=== PATIENT | male | born 1965 | race African-American/Black ===

== ENCOUNTER 2016-09-30 10:31 | Inpatient (IN) ==
[2016-09-30] MEDS ORDERED: SODIUM CHLORIDE 0.9% 1,000 ML IV STA (10:50)
[2016-09-30 10:51] LABS: Basophils % 0.3 % (0.0-0.8); Eosinophils # 0.1 10*3/uL (0.0-0.87); Eosinophils % 1.2 % (0.00-10.9); Hemoglobin 7.1 GM/DL (14.0-18.0); Immature Granulocytes % 0.6 %; Immature Granulocytes Absolute 0.07 #; Lymphocytes # 4.7 10*3/uL (1.4-4.0); Lymphocytes % 43.1 % (21.2-54.2); Mean Corpuscular HGB Conc 33.8 GM/DL (32-36); Mean Corpuscular Hemoglobin 33 PG (27-34); Mean Corpuscular Volume 97.7 FL (87-102); Mean Platelet Volume 11.1 FL (9.6-12.0); Monocytes # 0.8 10*3/uL (0.11-0.8); Monocytes % 6.9 % (1.7-12.7); NRBC # 0.09 10*3/uL; Neutrophils # 5.2 10*3/uL (1.4-7.4); Neutrophils % 47.9 % (38.7-73.9); Platelet Count 176 T/CUMM (130-400); Red Blood Count 2.15 MC/CUMM (3.8-5.5); Red Cell Distribution Width 13.4 % (9.3-17.3); White Blood Count 10.9 T/CUMM (4-12)
[2016-09-30 10:59] LABS: INR 1.1; PT Patient Result 11.4 SECS
[2016-09-30] MEDS ORDERED: PANTOPRAZOLE 40 MG VIAL IV STA (11:02)
[2016-09-30] MEDS ORDERED: ONDANSETRON 4 MG/2 ML VIAL IV STA (11:02)
[2016-09-30] MEDS ORDERED: PANTOPRAZOLE 40 MG VIAL IV ONE (11:04)
[2016-09-30] MEDS ORDERED: ONDANSETRON 4 MG/2 ML VIAL ONE (11:04)
[2016-09-30] MEDS ORDERED: SODIUM CHLORIDE 0.9% 250 ML IV PRN (11:16)
[2016-09-30 11:23] LABS: Alanine Aminotransferase 39 U/L (16-61); Albumin 3.5 G/DL (3.4-5.0); Alkaline Phosphatase 73 U/L (45-117); Aspartate Amino Transferase 26 U/L (0-37); Bilirubin,Total < 0.39 MG/DL (0.2-1.0); Blood Urea Nitrogen 19 MG/DL (7-18); Calcium 8.5 MG/DL (8.5-10.1); Glucose 131 MG/DL (74-106); Potassium 3.1 MMOL/L (3.5-5.1); Sodium 143 MMOL/L (136-145); Total Protein 6.1 G/DL (6.4-8.3); Troponin I Only < 0.015 NG/ML (0.00-0.045)
--- NOTE | 2016-09-30 11:27 | Emergency Department Note ---
Dev Quintero Mantricia, am scribing for, and in the presence of, Darren Stephen MD 11:11. Hailee Quintero James D, MD, personally performed the services described in this documentation, ascribed by Bhavin Méndez in my presence, and it is both accurate and complete . Arrival - Arrival Chief Complaint: Syncope Stated Complaint: syncope ED Nursing Triage Note: Brought in per EMS from work with c/o syncopal episode this am. Reports was dizzy, then had syncopal episode while sitting in truck. + vomiting--bright red blood. Also c/o black tarry stools-- onset 09/26/16. + diaphoresis. Denies pain. Mode of Arrival: Stretcher Limitations: No Limitations Source: Patient Time Seen by Provider: 09/30/16 10:54 - History of Present Illness HPI Narrative: Pt is a 51 y/o black male arriving to ED by EMS for evaluation of a syncopal episode that occurred today around 1000. He states that he was at work at [employer], sitting in his truck, and he became very hot and diaphoretic and fell out. A coworker found him and called his . He states that he might have been LOC for a few minutes. Pt also reports vomiting bright red blood and melena fro the past 3-4 days but denies any pain anywhere. He confirms no use of OTC medications. Pt reports no other complaints to ED. Onset (ago): hour(s) Allergies/Adverse Reactions: Allergies Allergy/AdvReac Type Severity Reaction Status Date / Time No Known Allergies Allergy Verified 09/30/16 10:37 Home Medications: Home Medications Medication Instructions Recorded Confirmed Type Aspirin EC Tab 81 mg PO QAM 09/30/16 09/30/16 History Atorvastatin [Lipitor] 40 mg PO QAM 09/30/16 09/30/16 History Levocetirizine Dihydrochloride 5 mg PO QAM 09/30/16 09/30/16 History Metoprolol Succinate Xl [Toprol Xl] 25 mg PO QAM 09/30/16 09/30/16 History Nitroglycerin Sl Tab [Nitrostat] 0.4 mg SL Q5M PRN 09/30/16 09/30/16 History amLODIPine [Norvasc] 10 mg PO QAM 09/30/16 09/30/16 History Review of System - Review of System 12 point system: reviewed and no additional remarkable complaints except as stated - Review of System Constitutional: Present: diaphoresis. Absent: chills Eyes: Absent: discharge, pain Head/Ears/Nose/Throat: Absent: earache Respiratory: Absent: cough Cardiovascular: Present: syncope. Absent: chest pain, palpitations Gastrointestinal: Present: nausea, vomiting (bright red blood), diarrhea, melena. Absent: abdominal pain Genitourinary male: Absent: urgency, dysuria Musculoskeletal: Absent: arm pain, back pain, leg pain, neck pain Skin: Absent: rash, lesions Neurological: Absent: headache, weakness Psychiatric: Absent: anxiety, depression Medical,Surgical,& Family Hx - Medical History Cardio: History of: Hypertension, [place] (2013) Endocrine: History of: Dyslipidemia - Social History Smoking Status: Current every day smoker Frequency of Alcohol Use: Occasionally (Patient states that he drinks on holidays. He admits to drinking over Memorial Day weekend about a 6 pack per day.) Type of Drug Use: None Exam Vital Signs: Vital Signs Temperature 97.0 F L 09/30/16 10:31 Pulse Rate 97 H 09/30/16 10:56 Respiratory Rate 18 09/30/16 11:13 Blood Pressure 113/77 09/30/16 10:56 O2 Sat by Pulse Oximetry 100 09/30/16 10:56 - General General appearance: alert, in no apparent distress - Head Head exam: Present: atraumatic, normocephalic, normal inspection - Eye Eye exam: Present: PERRL, EOMI, other (Pale conjunctiva) - ENT ENT exam: Present: normal exam, normal oropharynx, mucous membranes moist, TM's normal bilaterally, normal external ear exam - Neck Neck exam: Present: normal inspection, full ROM, trachea midline. Absent: tenderness - Chest Chest inspection: Present: normal inspection, symmetric chest wall rise. Absent : tenderness - Respiratory Respiratory exam: Present: normal lung sounds bilaterally - Cardiovascular Cardiovascular exam: Present: regular rate, normal rhythm, normal heart sounds - Abdominal Exam Abdominal exam: Present: soft, normal bowel sounds. Absent: distention, tenderness, guarding, rebound - Rectal Exam Rectal exam: Present: normal rectal tone, heme (+) stool, black stool - Extremities Exam Extremities exam: Present: normal inspection, full ROM, normal capillary refill. Absent: tenderness, pedal edema - Back Exam Back exam: Present: normal inspection, full ROM. Absent: tenderness - Neurological Exam Neurological exam: Present: alert, oriented X3, CN II-XII intact, normal gait, reflexes normal - Psychiatric Psychiatric exam: Present: normal affect, normal mood - Skin Skin exam: Present: intact, normal color, diaphoresis Course Course Narrative: Patient was given IV Protonix in the emergency department along with Zofran. Patient was also transfused packed red blood cells while in the emergency department. He will be admitted to the ICU. - Consultations Consultation #1: Discussed with Dr. Salmeron. He will see the patient in consultation. Time: 11:25 Consultation #2: Discussed with hospitalist. Patient will be admitted to their service. Time: 11:25 Results - Labs CBC & BMP: 09/30/16 10:42 09/30/16 10:42 Lab Results: I have reviewed the patients labs - EKG EKG results: interpreted by ERMD - Impressions EKG: Normal sinus rhythm with a rate of 93, nonspecific ST-T wave changes, left axis deviation. - Diagnostic Findings Procedure: Abdominal x-ray: image reviewed by me, Chest x-ray: image reviewed by me Critical Care Time Critical Care Time: Yes Total Critical Care Time: 60 Attestation: Transfusion, Protonix, and Zofran while in the emergency department. Disposition Clinical Impression: Upper GI bleeding, Syncope, Acute blood loss anemia Case discussed with: patient, patient's family Disposition: Still a Patient Condition: Guarded
--- NOTE | 2016-09-30 11:41 | XRay Report ---
History: Syncope Date: 09/30/2016 Study: Chest x-ray PA and lateral Comparison exam: November 12, 2012 chest x-ray The cardiomediastinal silhouette and pulmonary vasculature are unremarkable. The lungs and pleural spaces are clear. The osseous structures are unremarkable. Impression: No acute cardiopulmonary process. Shallow inspiration. No significant interval changes from the previous study PROCEDURE INTERPRETED AT [facility] DEPARTMENT OF RADIOLOGY Final Report Signed by: Dr. Lay Salmeron
--- NOTE | 2016-09-30 11:44 | XRay Report ---
History: Upper GI bleeding Date: 09/30/2016 Study: Flat and erect abdomen Comparison exam: No previous There is no evidence of pneumoperitoneum. The bowel gas pattern is nonobstructive without gross mass lesion. No radiopaque calculi are seen. Osseous structures are unremarkable. Impression: No acute cardiopulmonary process PROCEDURE INTERPRETED AT [facility] DEPARTMENT OF RADIOLOGY Final Report Signed by: Dr. Lay Salmeron
[2016-09-30] MEDS ORDERED: LIDOCAINE 100 MG/5 ML SYRINGE ONE (12:00)
[2016-09-30] MEDS ORDERED: PROPOFOL 200 MG/20 ML VIAL IV ONE (12:00)
[2016-09-30] MEDS ORDERED: PANTOPRAZOLE INJ 200 MG in SODIUM CHLORIDE 0.9% 250 ML IV SCH (12:00)
[2016-09-30] MEDS ORDERED: SODIUM CHLORIDE 0.9% 1,000 ML IV SCH (12:00)
--- NOTE | 2016-09-30 12:05 | Hospitalist History & Physical ---
Assessment and Plan (1) Nicotine addiction Status: Acute Assessment and plan: At the time of admission the patient reports that he smokes 1 pack of cigarettes daily. I spoke with the patient in great detail regarding smoking necessitation and risk factors associated with smoking along with his co- morbidities. The patient acknowledged understanding of the risk factors. He agreed to wear a nicotine patch during the hospital admission. Current Visit: Yes (2) Alcohol addiction Status: Acute Assessment and plan: The patient reports that he is a daily alcohol drinker. He reports that he drinks at least one sixpack of beer a day; however he has not experienced a prolonged period of time in which he has not been able to drink. We will start we will start alcohol withdrawal protocol and monitor. Current Visit: Yes (3) Upper GI bleeding Status: Acute Assessment and plan: We will hold n.p.o., start PPIs, gently hydrate, and consult GI for evaluation. Current Visit: Yes (4) Syncope Status: Acute Assessment and plan: The patient has a known cardiac history. He reports a history of an NE in 2002. He reports medication compliance. However due to his complexity of his co -morbidities we will conduct a full syncope workup. Current Visit: Yes (5) Acute blood loss anemia Status: Acute Assessment and plan: His H&H at the time of admission was noted at 7.0 and 21. I do expect this level to further decline. We will type and screen, obtain serial H/H's, and transfuse as indicated. Current Visit: Yes (6) Hypokalemia Status: Acute Assessment and plan: Potassium was noted at 3.1. We will replace and recheck in a.m. Current Visit: Yes History of Present Illness Chief complaint: Bloody stools and bloody emesis History of present illness: This is a very pleasant 51-year-old male that presented to the ED at [facility] via EMS for evaluation of syncope, bloody stools, and bloody emesis. The patient has a medical history significant for hypertension, myocardial infarction (2013), dyslipidemia, nicotine addiction, and alcohol addiction. The patient reports no significant surgical history. Apparently the patient was at work today, sitting in his truck when he suddenly became hot , diaphoretic, and eventually passed out. The syncopal episode was witnessed by his coworker who proceeded to call his and EMS. He briefly came to and was transported here for further evaluation. Upon interview, the patient reported that he had been experiencing blood in his stool and vomiting blood for the past 3 days prior to presentation. He reported that he had been drinking in excess during the holiday. He denies the use of any [id number] medications or illicit drugs at the time of interview, however reports that he is a daily drinker of at least one six pack of beer. The patient reports that he is a current smoker states that he smokes at least one pack of cigarettes a day. Labs were obtained at the time of presentation which reported anemia with a hemoglobin of 7.1 and hematocrit of 21.0, hypokalemia with a potassium of 3.1, BUN at 19, glucose at 131, and total protein at 6.1. Cardiac enzymes were obtained which reported a troponin at less than 0.015. Abdominal x-ray was performed which was unremarkable for any acute cardiopulmonary process. Chest x -ray was obtained which was essentially benign with no acute cardiopulmonary process noted. After brief discussion with and Dr. Li, the patient will be admitted to the critical care unit under the hospitalist services for further evaluation. We will consult GI and cardiology to assist. Home Medications Medication Instructions Recorded Confirmed Type Aspirin EC Tab 81 mg PO QAM 09/30/16 09/30/16 History Atorvastatin [Lipitor] 40 mg PO QAM 09/30/16 09/30/16 History Levocetirizine Dihydrochloride 5 mg PO QAM 09/30/16 09/30/16 History Metoprolol Succinate Xl [Toprol Xl] 25 mg PO QAM 09/30/16 09/30/16 History Nitroglycerin Sl Tab [Nitrostat] 0.4 mg SL Q5M PRN 09/30/16 09/30/16 History amLODIPine [Norvasc] 10 mg PO QAM 09/30/16 09/30/16 History Allergies Allergy/AdvReac Type Severity Reaction Status Date / Time No Known Allergies Allergy Verified 09/30/16 10:37 Medical,Surgical,& Family Hx - Medical History Cardio: History of: Hypertension, [place] (2013) Endocrine: History of: Dyslipidemia - Social History Smoking Status: Current every day smoker Frequency of Alcohol Use: Occasionally (Patient states that he drinks on holidays. He admits to drinking over weekend about a 6 pack per day.) Type of Drug Use: None 12 point system: reviewed and no additional remarkable complaints except as stated Exam - Constitutional Vitals: Period Temp Pulse Resp BP Sys/Lugo Pulse Ox Last 24 Hr 97.0 F-97.0 F 97-102 18-20 113-113/64-77 99-100 General appearance: normal weight, no acute distress - Head Head exam: Present: normal inspection, normocephalic, atraumatic - Eye Eye exam: Present: EOMI. Absent: conjunctival injection, nystagmus Pupils: Present: RESHMA, normal accommodation - ENT ENT exam: Present: normal exam, normal external ear exam, normal oropharynx - Neck Neck exam: Present: normal inspection. Absent: lymphadenopathy, meningismus, tenderness, thyromegaly - Respiratory Respiratory exam: Present: clear to auscultation bilaterally. Absent: rales, rhonchi, stridor, wheezes - Cardiovascular Cardiovascular exam: Present: regular rate and rhythm. Absent: carotid bruit, diastolic murmur, gallop, JVD, rubs, systolic murmur - GI/Abdominal GI/Abdominal exam: Present: normal bowel sounds, soft - Extremities Exam Extremities exam: Present: normal inspection, normal capillary refill, full ROM. Absent: edema - Back Exam Back exam: Present: normal inspection - Neurological Exam Neurological exam: Present: alert, oriented X3, CN II-XII intact - Psychiatric Psychiatric exam: Present: normal affect, normal mood - Skin Skin exam: Present: normal color, warm, dry Results - Labs CBC & BMP: 09/30/16 10:42 09/30/16 10:42 Lab Results: I have reviewed the past 24 hour labs
[2016-09-30 12:09] LABS: Hematocrit 21.3 VOL% (42.0-52.0)
[2016-09-30] MEDS ORDERED: ONDANSETRON 4 MG/2 ML VIAL IV PRN (12:21)
[2016-09-30] MEDS ORDERED: NICOTINE 21 MG/24 HR PATCH TRANSDERM PRN (12:21)
[2016-09-30] MEDS ORDERED: THIAMINE INJ 100 MG, FOLIC ACID INJ 1 MG, MULTIVITAMIN INJ 10 ML in SODIUM CHLORIDE 0.9... IV SCH (12:30)
[2016-09-30 12:47] LABS: Thyroid Stimulating Hormone 0.993 uIU/ml (0.358-3.74); VLDL CHOLESTEROL 19.6 MG/DL
--- NOTE | 2016-09-30 13:35 | Gastrointestinal Consult Note ---
Assessment and Plan (1) Upper GI bleeding Status: Acute Assessment and plan: The differential diagnosis for this patient is mostly esophageal varices, the patient does take an aspirin each day and it is possible he may have had a localized peptic ulcer, less likely this is a Amy-Cotton tear or Dieulafoy's lesion or AVM. Gastric cancer remains in the differential as does erosive gastritis and esophagitis. We will proceed with upper endoscopy tomorrow morning after starting octreotide drip tonight. Current Visit: Yes (2) Acute posthemorrhagic anemia Status: Acute Assessment and plan: The patient has an acute posthemorrhagic anemia likely secondary to variceal bleeding given his prior history of alcohol intake. We will verify this with upper endoscopy tomorrow in the meantime cover the patient with octreotide 100 mcg bolus followed by 50 mcg/h and a drip and will continue this for 48 hours. If he is verified to have esophageal varices the patient will need to be on a beta-yulissa leaving the hospital. We will continue to transfuse him in the interim once the octreotide is started. The patient will also be placed on Protonix 40 mg IV twice daily. Upper endoscopy is to occur tomorrow morning, after the patient has been resuscitated and stabilized. Risks of the above procedure include but are not limited to: Bleeding, infection, perforation, cardiac and pulmonary compromise. If varices replace the patient will need to be on a full liquid diet for a full week afterwards. Current Visit: Yes (3) Personal history of colonic polyps Status: Acute Assessment and plan: The patient had a hyperplastic polyp noted on his last colonoscopy in November 2015 , he will need a repeat colonoscopy in October 2025 as these polyps carry very little malignant rest. Current Visit: Yes (4) Nausea and vomiting Status: Acute Assessment and plan: I suspect this is likely associated with the melena and digested blood irritating his stomach. This should improve as he clears the blood. We will continue to watch for further hematemesis and the development of hepatic encephalopathy as result of digested blood. Current Visit: Yes (5) Alcohol addiction Status: Acute Assessment and plan: Discussed frankly the patient's need to discontinue drinking entirely at this point. His was appraised of same. He understands the need to stop drinking. Again I reemphasized the fact that he has about a 20% chance of dying with each hematemesis episode if the cause is proven to be esophageal varices. Current Visit: Yes History of Present Illness Chief complaint: Melena, hematemesis, syncope, hematocrit down to 21% acutely History of present illness: Mr. Kelly is a 51 year old male who is a patient of mine who originally with a history of rectal fissure and recently underwent colonoscopy on 11/26/15 with the discovery of moderate size internal hemorrhoids as well as multiple hyperplastic appearing polyps that proved to be, indeed, hyperplastic. He does not require repeat colonoscopy for another 10 years i.e. until October 2025. The patient unfortunately has been drinking since age 13 and is a alcoholic sometimes drinking up to 18 beers in a day. He has been drinking in conjunction with the hol. For the last 4 days or so the patient is been having black stools for the first time in his life--these have been quite sticky in addition to being black and today patient feels nauseous and had some dizziness while at work. He passed out while at work and was assessed by local medical personnel and turned his head and had an episode of coffee-ground emesis and bright red emesis and was noted to the emergency room to have a hematocrit of 21.0 with an INR of 1.1 and a liver function tests are surprisingly normal with an ALT of 39 and AST of 26 and alkaline phosphatase of 73 and a bilirubin of <0.39. The patient has had previous heart attacks in the past including a non-Q-wave [place] back in October 2012. He has underlying hypertension and hyperlipidemia as well as tobacco use. We have discussed his alcoholism, and that he needs to quit drinking at this time. The patient now understands that he is about a 20% chance of dying with each of these episodes if this proves to be a variceal bleed. The patient has had some syncope with this episode, not surprising given his hematocrit drop. He has never had upper endoscopy. There is no family history of colorectal cancer or polyps, he does not typically have diarrhea or constipation or abdominal pain even with this episode. He felt may be a hint of reflux 4 days ago when he started having the dark stools. He is not eating anything unusual and did not have profuse vomiting before the development of his melena. He was last seen in my GI clinic on 10/29/15. 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 Home Medications Medication Instructions Recorded Confirmed Type Aspirin EC Tab 81 mg PO QAM 09/30/16 09/30/16 History Atorvastatin [Lipitor] 40 mg PO QAM 09/30/16 09/30/16 History Levocetirizine Dihydrochloride 5 mg PO QAM 09/30/16 09/30/16 History Metoprolol Succinate Xl [Toprol Xl] 25 mg PO QAM 09/30/16 09/30/16 History Nitroglycerin Sl Tab [Nitrostat] 0.4 mg SL Q5M PRN 09/30/16 09/30/16 History amLODIPine [Norvasc] 10 mg PO QAM 09/30/16 09/30/16 History Allergies Allergy/AdvReac Type Severity Reaction Status Date / Time No Known Allergies Allergy Verified 09/30/16 10:37 Medical,Surgical,& Family Hx - Medical History Cardio: History of: Hypertension, [place] (2013) Endocrine: History of: Dyslipidemia - Surgical History Cardiac Surgeries: Sugical HX of: Cardiac Catheterization (X2 stents) HEENT Surgeries: Surgical HX of: Tonsilectomy & Adenoidectomy - Family History Family History: Reports;: Family Cancer (grandparents), Family Diabetes (sister) , Family Heart Disease (father) - Social History Smoking Status: Current every day smoker Frequency of Alcohol Use: Occasionally (Patient states that he drinks on holidays. He admits to drinking over about a 6 pack per day.) Type of Drug Use: None Review of systems: Constitutional: Denies fever, chills, but positive for recent nausea, and vomiting Eyes: Denies dry eyes, and scleral icterus HENT: Denies headaches Cardiovascular: Denies acute chest pain and claudication Respiratory: Denies shortness of breath, wheezing, and difficulty breathing, denies cough Gastrointestinal: As noted in the HPI Genitourinary: Denies dysuria and hematuria Neurologic: Denies vision loss, and loss of sensation Musculoskeletal: He does have some minimal joint swelling, joint stiffness, and muscular weakness Psychiatric: Denies depression and carol symptoms, positive for alcoholism. Heme-Lymph: Denies easy bruising, lymph node enlargement or tenderness, night sweats, excessive bleeding Allergies-immunologic: Denies pruritus and rhinorrhea Exam - Constitutional Vitals: Period Temp Pulse Resp BP Sys/Lugo Pulse Ox Last 24 Hr 97.0 F-98.0 F 82-102 16-20 113-146/64-78 99-100 Exam: Constitutional: Well-developed, well-nourished, alert, and in no acute distress Head and face: Head: Normocephalic atraumatic Eyes: Conjunctiva without injection, no gross scleral icterus, pupils equal and round bilaterally Ears: Intact to conversation in both ears Nose: External appearance is normal, nares patent Mouth: Oral mucous membranes moist without erythema dentition noted to be without erosion Neck: Normal appearance, no masses or tenderness, trachea midline Thyroid: Gland midline and appropriate size for age Respiratory: Normal respiratory effort, clear to auscultation without wheezes, rhonchi or rales Cardiovascular: Regular rate and rhythm, normal S1, S2, the exam is without rubs, murmurs or gallops. Gastrointestinal: Nontender to palpation, normal active bowel sounds, tone normal without rigidity or guarding, no masses present, no hepatomegaly, no spleen tip felt. Stool is notably black in a patient with significant rectal tone and a large bulbous external hemorrhoid and smaller spongy internal hemorrhoids. Lymphatic: Neck without adenopathy, axilla without lymphadenopathy present Musculoskeletal: Right and left lower extremities without evidence of edema Skin and subcutaneous tissue: No rashes or ulcerations noted, normal skin turgor, digits and nails without clubbing/cyanosis/deformities. Neurologic: The patient is grossly oriented to person place and time, cranial nerves show tongue movements are normal with normal tongue extrusion midline, light touch sensation is intact. Psychiatric: No hallucinations or delusions are present, does not appear depressed Results - Labs CBC & BMP: 09/30/16 12:04 09/30/16 10:42 Quality Measures - VTE Contraindication to Pharmacological VTE Prophylaxis: Active Bleeding
[2016-09-30] MEDS ORDERED: OCTREOTIDE 100 MCG/ML SYRINGE IV ONE (14:00)
[2016-09-30] MEDS ORDERED: LORazepam 2 MG/1 ML VIAL IV PRN (14:07)
[2016-09-30] MEDS ORDERED: OCTREOTIDE 1,250 MCG in SODIUM CHLORIDE 0.9% 247.5 ML IV SCH (14:30)
--- NOTE | 2016-09-30 14:36 | Ultrasound Report ---
History: Syncope Date: 09/30/2016 Study: Carotid duplex ultrasound Comparison exam: No previous Color Doppler, wave form analysis, and grayscale analysis of the cervical carotid arteries was performed. There is mild partially calcified plaque in the right carotid bulb. Waveform analysis shows proper directional flow of the cervical carotid arteries. There is antegrade flow in either vertebral artery. The distal right ICA measures 5.0 mm diameter; the left measures 5.2 mm diameter. Peak systolic velocities are as follows: Right CCA 116 cm/s Right ICA 127 cm/s Right ECA 117 cm/s Right vertebral 55 cm/s Right IC/CC ratio 1.1 Left CCA 116 cm/s Left ICA 113 cm/s Left ECA 104 cm/s Left vertebral 78 cm/s Left IC/CC ratio 1.0 There is 16-49 % diameter reduction narrowing of either internal carotid artery using indirect NASCET criteria. Ultrasound images were captured and archived. Impression: No hemodynamically significant internal carotid artery stenosis PROCEDURE INTERPRETED AT [facility] DEPARTMENT OF RADIOLOGY Final Report Signed by: Dr. Lay Salmeron
[2016-09-30] MEDS ORDERED: POTASSIUM CHLORIDE RIDER 10 MEQ in PREMIX 1 EACH IV PRN (15:08)
--- NOTE | 2016-09-30 18:48 | ECHO Report ---
El Kelly Exam Date: 09/30/2016 14:28 Referring Physician: Technologist: anna OharaS, RVT Age: 51 Ht (in): 73 Wt (lb): 207 Gender: M Exam Location: [facility] Echo Indications: Syncope and collapse, GI bleed, Hypokalemia, Acute blood loss anemia, Nicotine and alcohol addiction BP: 146 / 78 HR: 88 Rhythm: Sinus Technical Quality: IMPRESSIONS Left ventricular ejection fraction is estimated at 55-60 %. Diastolic parameters are most consistent with grade 2 diastolic dysfunction or pseudonormalization. No significant valvular disease MEASUREMENTS (Male / Female) Normal Values 2D ECHO LV Diastolic Diameter PLAX 5.2 cm 4.2 - 5.9 / 3.9 - 5.3 cm LV Systolic Diameter PLAX 3.2 cm LV Fractional Shortening PLAX 38.3 % IVS Diastolic Thickness 1.1 cm 0.6 - 1.0 / 0.6 - 0.9 cm LVPW Diastolic Thickness 1.4 cm 0.6 - 1.0 / 0.6 - 0.9 cm RV Internal Dim ED PLAX 2.3 cm Aortic Root Diameter 3.3 cm LA Systolic Diameter LX 3.5 cm 3.0 - 4.0 / 2.7 - 3.8 cm FINDINGS Left Ventricle Normal left ventricular cavity size. Mild left ventricular hypertrophy. Left ventricular ejection fraction is estimated at 55-60 %. Diastolic parameters are most consistent with grade 2 diastolic dysfunction or pseudonormalization Right Ventricle The right ventricle is normal in size and function. Right Atrium The right atrium is normal in size. Left Atrium The left atrium is normal in size. Mitral Valve Morphologically normal mitral valve without significant stenosis or prolapse. There is no mitral regurgitation. Aortic Valve Morphologically normal aortic valve without significant sclerosis or stenosis. There is no aortic regurgitation. Tricuspid Valve Morphologically normal tricuspid valve without significant stenosis or regurgitation. Pulmonary artery systolic pressure is normal. Pulmonic Valve Morphologically normal pulmonic valve without significant stenosis. There is no pulmonic regurgitation. Pericardium Normal pericardium without effusion. Aorta Normal ascending aorta dimension. Isabel Borja (Electronically Signed) Final Date: 30 Sep 2016 18:47
[2016-09-30] MEDS: POTASSIUM CHLORIDE 20 MEQ/15 ML UDCUP PO SCH (21:32)
[2016-09-30] MEDS: 1: THIAMINE INJ 100 MG, FOLIC ACID INJ 1 MG, MULTIVITAMIN INJ 10 ML in SODIUM CHLORIDE 0 IV SCH (22:54)
[2016-09-30] MEDS ORDERED: POTASSIUM CHLORIDE RIDER 100 ML IV ONE (23:06)
[2016-09-30] MEDS: POTASSIUM CHLORIDE RIDER 10 MEQ in PREMIX 1 EACH IV PRN (23:09)
[2016-09-30 23:58] LABS: Hematocrit 26.5 VOL% (42.0-52.0); Hemoglobin 9.1 GM/DL (14.0-18.0)
[2016-10-01] MEDS: POTASSIUM CHLORIDE RIDER 10 MEQ in PREMIX 1 EACH IV PRN ×3 (00:17→02:17)
[2016-10-01 05:30] LABS: Basophils % 0.4 % (0.0-0.8); Eosinophils # 0.2 10*3/uL (0.0-0.87); Eosinophils % 2.3 % (0.00-10.9); Hematocrit 26.5 VOL% (42.0-52.0); Hemoglobin 8.9 GM/DL (14.0-18.0); Immature Granulocytes % 0.4 %; Immature Granulocytes Absolute 0.04 #; Lymphocytes # 3.6 10*3/uL (1.4-4.0); Mean Corpuscular HGB Conc 33.6 GM/DL (32-36); Mean Corpuscular Hemoglobin 32 PG (27-34); Mean Corpuscular Volume 94.3 FL (87-102); Mean Platelet Volume 11.8 FL (9.6-12.0); Monocytes # 0.7 10*3/uL (0.11-0.8); Monocytes % 6.5 % (1.7-12.7); NRBC # 0.05 10*3/uL; Neutrophils # 5.7 10*3/uL (1.4-7.4); Neutrophils % 55.4 % (38.7-73.9); Platelet Count 145 T/CUMM (130-400); Red Blood Count 2.81 MC/CUMM (3.8-5.5); White Blood Count 10.3 T/CUMM (4-12)
[2016-10-01 06:08] LABS: Calcium 7.5 MG/DL (8.5-10.1); Magnesium 2.2 MG/DL (1.8-2.4); Osmolality,Calculated 285.8 MOS/KG (273-304); Potassium 4.2 MMOL/L (3.5-5.1)
--- NOTE | 2016-10-01 07:10 | EKG Report ---
Stationary ECG Study [facility] ER Test Date: 09/30/2016 10:44:39 AM Pat Name: ENA OQUENDO Department: Room: 123 Gender: M [employer] Application Developer: : [id number] Requested by: Darren Scruggs Order Number: [id number] Reading MD: BUZZ RUBIO Intervals [facility] Rate: 93 P: 54 IN: 137 QRS: -15 QRSD: 120 T: 24 QT: 344 QTc: 395 Interpretive Statements SINUS RHYTHM POSSIBLE RIGHT VENTRICULAR CONDUCTION DELAY MODERATE VOLTAGE CRITERIA FOR LVH, CONSIDER NORMAL VARIANT NONSPECIFIC T-WAVE ABNORMALITY Electronically Signed On 10-01-16 21:45:02 CDT by BUZZ RUBIO [email or web address]
[2016-10-01] MEDS: 1: THIAMINE INJ 100 MG, FOLIC ACID INJ 1 MG, MULTIVITAMIN INJ 10 ML in SODIUM CHLORIDE 0 IV SCH (08:00)
[2016-10-01] MEDS: POTASSIUM CHLORIDE 20 MEQ/15 ML UDCUP PO SCH (08:44)
--- NOTE | 2016-10-01 08:46 | Anesthesia Post-Op ---
Anesthesia Post OP - Post Ansesthetic Evaluation Patient seen in post op: Yes Resp: within normal limits CV: within normal limits Mental: within normal limits Temp: within normal limits [id number]-[id number]: within normal limits Nausea and Vomiting: within normal limits Pain: within normal limits
--- NOTE | 2016-10-01 08:47 | Operative Note ---
Date of procedure: 10/01/16 Pre-op diagnosis: Hematemesis, melena, drop in hematocrit to 21%-->26.5% Post-op diagnosis: other (The patient's hematemesis is due to a posterior bulb duodenal ulcer, clean white based ulcer this is a low likelihood of rebleed. Patient can be discharged today. He did have esophageal varices (grade 1) 2 columns, these were not banded. There was some mild to moderate gastritis was also biopsied and I anticipate will show Helicobacter pylori.) Procedure: PROCEDURE: Esophagogastroduodenoscopy (EGD) with cold biopsy for pathology REFERRING PHYSICIAN: Sumaya Li MD INDICATIONS: Hematemesis and hematocrit down to 21% acutely, melena. The prior H&P was reviewed and interrim changes are as noted: No change from GI consultation yesterday ENDOSCOPIST: Morgan Luciano MD ENDOSCOPE: Olympus Video 100 System upper endoscope ASA CLASS: 3 EXAM: CV: regular rate and rhythm respiratory: Clear without wheezes abdominal: active bowel sounds MEDICATION: Per nursing anesthesia protocol, see their notes PROCEDURE: After discussion of the potential risks and benefits of upper endoscopy, the informed consent was obtained. The patient was then placed in the left lateral decubitus position where sedation was achieved as noted above. Esophageal intubation was performed without difficulty, and the endoscope was advanced through the esophagus, stomach and duodenum. A slow withdrawal was then performed with retroflexion in the stomach for careful inspection of the incisura angularis, fundus and cardia. The scope was then returned to a neutral position and withdrawn through the esophagus. The patient tolerated the procedure well and without complication. BIOPSIES: Gastric antrum/body and duodenum/ulcer margin PHOTOGRAPHS: Obtained FINDINGS: Hypopharynx and Larynx: Normal Esohagoscopy Upper and middle thirds: 2 columns of grade 1 varices Lower third 2 columns of grade 1 varices, not banded Esophogastric junctions: Normal aside from varices noted, no stricturing or Peoples's or esophagitis Gastroscopy: Cardia/Fundus: Normal, no evidence of portal hypertensive gastropathy Body: Moderate patchy nonerosive gastritis, biopsied Antrum and pylorus mild patchy nonerosive gastritis, biopsied Duodenoscopy: Bulb posterior bulb ulcer 1 cm, ulcer margin biopsied, erosive duodenitis Second and third portions: Mild duodenitis, biopsied IMPRESSION: The patient's hematemesis is due to a posterior bulb duodenal ulcer, clean white based ulcer this is a low likelihood of rebleed. Patient can be discharged today. He did have esophageal varices (grade 1) 2 columns, these were not banded. There was some mild to moderate gastritis was also biopsied and I anticipate will show Helicobacter pylori. RECOMMENDATIONS: Follow up for biopsy results in 1-2 weeks by phone [phone] 80% of ulcers not associated with NSAID's are due to Helicobacter pylori, in anticipation of this being positive I am going to go ahead and treat the patient with antibiotics upon discharge. I have written a prescription for some Protonix twice daily as well as amoxicillin 1000 mg twice daily and clarithromycin 500 mg twice daily for a period of 10 days. Patient is ready for discharge when you see fit. Continue anti-gastroesophageal reflux measures (avoid carbonated and acidic beverages, avoid eating within 2 hours of bedtime, avoid tight fitting clothing , and elevate the front bed posts 6 inches prior to sleeping. I had like to see him back in the office in about 2 months to discuss events and his drinking. Morgan Luciano MD COPY TO: Sumaya Li MD Anesthesia: MAC Surgeon / Physician: Morgan Luciano Estimated blood loss: minimal Specimens: other (Duodenal ulcer/duodenitis, gastric antrum/body) Condition: stable Disposition: post procedure unit ([facility]I. Suite) Results - Labs CBC & BMP: 10/01/16 04:52 10/01/16 04:52 Discharge Plan - Discharge Medications No Action Nitroglycerin Sl Tab [Nitrostat] 0.4 mg SL Q5M PRN PRN Reason: Chest Pain Aspirin EC Tab 81 mg PO QAM Metoprolol Succinate Xl [Toprol Xl] 25 mg PO QAM Levocetirizine Dihydrochloride 5 mg PO QAM amLODIPine [Norvasc] 10 mg PO QAM Atorvastatin [Lipitor] 40 mg PO QAM - Follow Up or Referral - Forms/Instructions
--- NOTE | 2016-10-01 08:58 | Gastrointestinal Progress Note ---
Assessment and Plan (1) Upper GI bleeding Status: Acute Assessment and plan: The differential diagnosis for this patient is mostly esophageal varices, the patient does take an aspirin each day and it is possible he may have had a localized peptic ulcer, less likely this is a Amy-Cotton tear or Dieulafoy's lesion or AVM. Gastric cancer remains in the differential as does erosive gastritis and esophagitis. We will proceed with upper endoscopy tomorrow morning after starting octreotide drip tonight. 10/01/16--the patient has grade 1 varices on upper endoscopy done today. He does not however have bleeding from these, the bleeding site proved to be a duodenal ulcer in the posterior bulb with clean white base, this is at low risk for rebleeding and is likely due to Helicobacter pylori possibly his aspirin exposure as well. The patient denies NSAID's. I am writing him prescription for Protonix twice daily for 1 month and then cut this back to once a day prior to supper. Given the fact that this is 80% likely to be associated with Helicobacter pylori I am writing him for the amoxicillin 1000 mg twice daily for 10 days and clarithromycin 500 mg p.o. twice daily for 10 days as well. Prescription is in the front of the chart. He is safe for discharge from my standpoint. He will probably need some light duty for his job for the next week while he regenerates his blood volume which is up to 26%. I emphasized to his that he needs to discontinue drinking. He should follow-up in my clinic in 2 months. Current Visit: Yes (2) Acute posthemorrhagic anemia Status: Acute Assessment and plan: The patient has an acute posthemorrhagic anemia likely secondary to variceal bleeding given his prior history of alcohol intake. We will verify this with upper endoscopy tomorrow in the meantime cover the patient with octreotide 100 mcg bolus followed by 50 mcg/h and a drip and will continue this for 48 hours. If he is verified to have esophageal varices the patient will need to be on a beta-yulissa leaving the hospital. We will continue to transfuse him in the interim once the octreotide is started. The patient will also be placed on Protonix 40 mg IV twice daily. Upper endoscopy is to occur tomorrow morning, after the patient has been resuscitated and stabilized. Risks of the above procedure include but are not limited to: Bleeding, infection, perforation, cardiac and pulmonary compromise. If varices replace the patient will need to be on a full liquid diet for a full week afterwards. 10/01/16--as noted above the patient has a duodenal ulcer. He does not need beta- blockers yet. I am stopping the octreotide. He can have a cardiac diet. He should switch his aspirin to baby dose and chewable. Current Visit: Yes (3) Personal history of colonic polyps Status: Acute Assessment and plan: The patient had a hyperplastic polyp noted on his last colonoscopy in November 2015 , he will need a repeat colonoscopy in October 2025 as these polyps carry very little malignant rest. 10/01/16--again the patient requires repeat colonoscopy in October 2025 Current Visit: Yes (4) Nausea and vomiting Status: Acute Assessment and plan: I suspect this is likely associated with the melena and digested blood irritating his stomach. This should improve as he clears the blood. We will continue to watch for further hematemesis and the development of hepatic encephalopathy as result of digested blood. 10/01/16--no further nausea or vomiting. No further episodes of melena although I expect more as he clears the blood. Current Visit: Yes (5) Alcohol addiction Status: Acute Assessment and plan: Discussed frankly the patient's need to discontinue drinking entirely at this point. His was appraised of same. He understands the need to stop drinking. Again I reemphasized the fact that he has about a 20% chance of dying with each hematemesis episode if the cause is proven to be esophageal varices. Current Visit: Yes Gastroenterology - PN: Subj Interval history: No hematemesis, patient doing well. EGD results are as follows: The patient's hematemesis is due to a posterior bulb duodenal ulcer, clean white based ulcer this is a low likelihood of rebleed. Patient can be discharged today. He did have esophageal varices (grade 1) 2 columns, these were not banded. There was some mild to moderate gastritis was also biopsied and I anticipate will show Helicobacter pylori. Exam (Progress Note) - Constitutional Vitals: Period Temp Pulse Resp BP Sys/Lugo Pulse Ox Last 24 Hr 97.0 F-98.5 F 63-150 12-28 96-175/49-90 96-100 General appearance: no acute distress - Head Head exam: Present: normocephalic - Eye Eye exam: Present: EOMI Pupils: Present: RESHMA - Respiratory Respiratory exam: Present: clear to auscultation bilaterally. Absent: rhonchi, stridor, wheezes - Cardiovascular Cardiovascular exam: Present: regular rate and rhythm - GI/Abdominal GI/Abdominal exam: Present: normal bowel sounds, soft. Absent: ascites, distended, tenderness, rebound - Extremities Exam Extremities exam: Absent: edema - Neurological Exam Neurological exam: Present: alert, oriented X3 - Psychiatric Psychiatric exam: Present: normal affect, normal mood - Skin Skin exam: Present: warm Results - Labs CBC & BMP: 10/01/16 04:52 10/01/16 04:52
[2016-10-01] MEDS ORDERED: PANTOPRAZOLE 40 MG TABLET PO SCH (09:30)
--- NOTE | 2016-10-01 12:30 | Discharge Summary ---
Hospital Course - Hospital Course Hospital Course: Mr Kelly presented with acute UGIB. He was transfused 3 U PRBCs and treated with octreotide and protonix. His EGD today showed grade 1 varices which were not bleeding. Also, a duodenal ulcer that was no longer bleeding but was the most likely source of the bleeding. He will be discharged home today on amoxil, biaxin, and protonix prescribed by Dr Luciano and he will see him in clinic in 2 months. He has been advised to stop drinking by DR Luciano and I. He rejects the idea that his alcohol is causing problems. - Time spent with patient Time with patient DS: Greater than 30 minutes (discharge planning, coordination of care, documentation and medicine reconciliation took 33 minutes.) Diagnosis - Discharge Diagnosis (1) Duodenal ulcer Status: Acute (2) Varices of esophagus determined by endoscopy Status: Chronic (3) Upper GI bleeding Status: Acute (4) Syncope Status: Resolved (5) Nicotine addiction Status: Chronic (6) Alcohol addiction Status: Chronic (7) Hypokalemia Status: Resolved (8) Acute posthemorrhagic anemia Status: Resolved Specialty Discharge - Follow Up or Referrals Follow up with: Morgan Luciano MD [Physician] - (2 months) Your, PCP [Other] - 1 Week Discharge Plan - Discharge Data Disposition: Disch To Home/Self Care Condition at Discharge: Stable Discharge Diet: advance to your usual diet, other (stop drinking alcohol so that your ulcer can heal and your liver is not further damaged. ) Activity: resume usual activities as tolerated - Discharge Medications New Thiamine Tab [Vitamin B1 Tab] 100 mg PO DAILY #100 tablet Mv-Mn/FA/Coq10/Lycopene/Lutein [Theragran-M Premier 50+ Caplet] 1 each PO DAILY #100 tablet Continue Nitroglycerin Sl Tab [Nitrostat] 0.4 mg SL Q5M PRN PRN Reason: Chest Pain Aspirin EC Tab 81 mg PO QAM Metoprolol Succinate Xl [Toprol Xl] 25 mg PO QAM Levocetirizine Dihydrochloride 5 mg PO QAM amLODIPine [Norvasc] 10 mg PO QAM Atorvastatin [Lipitor] 40 mg PO QAM - Follow Up or Referral - Forms/Instructions Additional Discharge Instructions: amoxicilin, protonix, biaxin as prescribed by Dr Luciano Exam - Constitutional Vitals: Period Temp Pulse Resp BP Sys/Lugo Pulse Ox Last 24 Hr 97.4 F-98.5 F 63-150 12-28 92-175/49-90 96-100 General appearance: normal weight, no acute distress - Head Head exam: Present: normocephalic, atraumatic - Eye Eye exam: Present: EOMI. Absent: scleral icterus - Respiratory Respiratory exam: Present: clear to auscultation bilaterally - Cardiovascular Cardiovascular exam: Present: regular rate and rhythm - GI/Abdominal GI/Abdominal exam: Present: normal bowel sounds, soft. Absent: tenderness - Extremities Exam Extremities exam: Absent: edema Discharge Results Procedures and tests throughout hospitalization: Pending Orders 09/30/16 MRSA Surveillence, Inf Control Routine Labs on day of discharge: Labs from last 24 hours 10/01/16 10/01/16 10/01/16 04:52 04:52 04:52 WBC 10.3 RBC 2.81 L D Hgb 8.9 L Hct 26.5 L MCV 94.3 MCH 32 MCHC 33.6 RDW 15.0 Plt Count 145 MPV 11.8 Neut % (Auto) 55.4 Lymph % (Auto) 35.0 Taylor % (Auto) 6.5 Eos % (Auto) 2.3 Baso % (Auto) 0.4 Neut # (Auto) 5.7 Lymph # (Auto) 3.6 Taylor # (Auto) 0.7 Eos # (Auto) 0.2 Baso # (Auto) 0.0 Immature Gran % 0.4 Nucleated RBC % 0.5 Immature Gran # 0.04 Nucleated RBCs # 0.05 Circ Anticoag PTT 24.7 Sodium 144 Potassium 4.2 Chloride 112 H Carbon Dioxide 24 Anion Gap 12.2 BUN 10 Creatinine 1.00 GFR Calculation 125 BUN/Creatinine Ratio 10.00 Glucose 118 H Calculated Osmolality 285.8 Calcium 7.5 L Magnesium 2.2 Triglycerides Cholesterol LDL Cholesterol VLDL Cholesterol HDL Cholesterol Heart Disease Risk Ratio TSH 3rd Generation Blood Type Antibody Screen Crossmatch Blood Bank Comment 09/30/16 09/30/16 09/30/16 23:52 11:16 10:42 WBC RBC Hgb 9.1 L D Hct 26.5 L MCV MCH MCHC RDW Plt Count MPV Neut % (Auto) Lymph % (Auto) Taylor % (Auto) Eos % (Auto) Baso % (Auto) Neut # (Auto) Lymph # (Auto) Taylor # (Auto) Eos # (Auto) Baso # (Auto) Immature Gran % Nucleated RBC % Immature Gran # Nucleated RBCs # Circ Anticoag PTT Sodium Potassium Chloride Carbon Dioxide Anion Gap BUN Creatinine GFR Calculation BUN/Creatinine Ratio Glucose Calculated Osmolality Calcium Magnesium Triglycerides 98 Cholesterol 123 LDL Cholesterol 64.0 VLDL Cholesterol 19.6 HDL Cholesterol 41 Heart Disease Risk Ratio 3.00 TSH 3rd Generation 0.993 Blood Type Cancelled Antibody Screen Cancelled Crossmatch See Detail Blood Bank Comment Cancelled DS: Provider Date of admission: 09/30/16 11:30 Primary care physician: . No PCP Attending physician on admission: Sumaya Li MD Consults: 09/30/16 11:33 Consult to Physician [CONS] Routine Comment: gi bleed, scoped by you 2016 [facility] Consulting Provider: Morgan Luciano When should Consulting Provider be notified: Now Consult to Specialist Group: Gastroenterology 09/30/16 13:47 Consult to Anesthesiology [CONS] Routine Consulting Provider: Reason for Anesthesiology: Pre-op Clearance Discharging clinician: Sumaya Li MD
[2016-10-01 14:01] VITALS: BP 158/99
[2016-10-03] MEDS ORDERED: PANTOPRAZOLE 40 MG VIAL IV SCH (21:00)
--- NOTE | 2016-10-05 14:19 | Pathology Report from [facility] ---
[facility] ACCESSION # : [id number] PATIENT NAME : El Oquendo ORDERING DR : Morgan Luciano MD CLINICAL HX: GI Bleed POST-OP DX: #1 Duodenum ulcer #2 Gastritis SPECIMEN INFO: #1 Duodenum ulcer biopsy #2 SUSAN GROSS DESCRIPTION: Received in formalin in two parts labeled:#1 EL OQUENDO & #1 is an aggregate of pink mayer mucosal tissue measuring approx. 1 x 0.3 cm, submitted in cassette #1.#2 EL OQUENDO & #2 are three mayer mucosal tissue fragments measuring collectively 0.8 x 0.3 cm, submitted in cassette #2. DIAGNOSIS FOR EL OQUENDO: #1 DUODENAL BIOPSY: Superficial mucosal ulceration with marked acute and chronic inflammation. Normal villous architecture; no evidence of sprue.#2 GASTRIC ANTRAL BIOPSY: Chronic antral gastritis. No evidence of malignancy.Special stain for H. pylori is negative. COLLECTED DATE: 10/01/2016 [facility] REPORT DATE: 10/02/2016 ELECTRONICALLY SIGNED BY: Gwen Almonte III, M.D. 10/02/2016 - 11:02:09 TENZIN
== END 2016-10-01 14:00 | disposition home or self-care (01) | DRG 378 ==
LOC: EDUNIT# → N.ED 10:31 → N.EDINP 11:30 → N.CC 11:46
PROVIDERS: ADMIT Internal Medicine; ATTEND Internal Medicine